=== PATIENT | male | born 1965 | race Caucasian/White ===

== ENCOUNTER 2017-04-02 19:13 | Emergency (ER) | payer SELFPAY ==
[~2017-04-02 19:13] MED LIST: Sodium Chloride 0.9% 1,000 ML BAG ONE; Sodium Chloride 0.9% 100 ML BAG ONE; Sodium Chloride Irrig Solution 250 ML BOT ONE
[2017-04-02] MEDS ORDERED: Fentanyl 100 MCG/2 ML VIAL ONE (19:18)
[2017-04-02] MEDS ORDERED: ceFAZolin Sodium 1 GM VIAL ONE (19:24)
[2017-04-02] MEDS ORDERED: Adacel (T-DAP) 0.5 ML VIAL ONE (19:24)
[2017-04-02 19:32] LABS: #Basophils 0.1 thou/uL (0.0-0.2); #Eosinphils 0.3 thou/uL (0.0-0.7); #Lymphocytes 3.3 thou/uL (1.20-3.40); #Monocytes 0.6 thou/uL (0.11-0.59); #Neutrophils 3.6 thou/uL (1.40-6.50); %Eosinophils 4.1 % (0.0-10.0); %Lymphocytes 41.7 % (21.0-51.0); %Monocytes 7.8 % (0.0-10.0); %Neutrophils 45.5 % (42.0-75.0); Hemoglobin 15.4 g/dL (14.0-18.0); Mean Corpuscular HGB CONC 34.5 g/dL (32.0-36.0); Mean Corpuscular Volume 92.7 fl (80.0-94.0); Mean Platelet Volume 6.7 fL (7.4-10.4); Platelet Count 294 thou/uL (130-400); RBC Distribution Width 11.6 % (11.5-14.5); White Blood Cell (WBC) Count 7.9 thou/uL (4.8-10.8)
[2017-04-02] MEDS ORDERED: Lidocaine 1% w/Epinephrine 1:100K 20 ML VIAL ONE (19:39)
[2017-04-02 19:51] LABS: ALT (SGPT) 41 U/L (8-55); AST (SGOT) 39 U/L (5-34); Albumin 4.3 g/dL (3.5-5.0); Alkaline Phosphatase 97 U/L (40-150); Anion Gap 16 mmol/L (10-20); BUN (Urea Nitrogen) 16 mg/dL (8.4-25.7); Bilirubin, Total Less than 0.3 mg/dL (0.2-1.2); Calc. Creatinine Clearance 0 mL/min (70-130); Calcium 9.1 mg/dL (7.8-10.44); Carbon Dioxide 23 mmol/L (22-29); Chloride 104 mmol/L (98-107); Estimated GFR-MDRD 78; Globulin 2.7 g/dL (2.4-3.5); Glucose 103 mg/dL (70-105); Potassium 3.6 mmol/L (3.5-5.1); Sodium 139 mmol/L (136-145)
[2017-04-02] MEDS ORDERED: Triple Antibiotic Oint 1 GM Packet ONE (20:36)
--- NOTE | 2017-04-02 22:03 | RAD ---
LEFT ELBOW TWO VIEWS: History: 51-year-old male with left elbow laceration. IMPRESSION: No fracture or dislocation or overt metal foreign body or other significant acute process. POS: [facility]
== END 2017-04-02 20:55 | disposition home or self-care (01) ==
LOC: MADERS 19:13
DX: S41.112A Laceration without foreign body of left upper arm, initial encounter (principal); I10 Essential (primary) hypertension; F17.210 Nicotine dependence, cigarettes, uncomplicated; W29.8XXA Contact with other powered hand tools and household machinery, initial encounter
CPT/HCPCS: 12034; 80053; 85025; 90471; 90715; 96365; 96375; J0690; J2001; J3010; J7050

== ENCOUNTER 2017-04-10 16:33 | Emergency (ER) | payer SELFPAY | END 2017-04-10 17:00 | disposition home or self-care (01) | LOC: MADERS 16:33 | DX: H60.91 Unspecified otitis externa, right ear (principal); S51.012D Laceration without foreign body of left elbow, subsequent encounter; I10 Essential (primary) hypertension; I49.9 Cardiac arrhythmia, unspecified; F17.210 Nicotine dependence, cigarettes, uncomplicated; W22.8XXD Striking against or struck by other objects, subsequent encounter | CPT/HCPCS: 99282 ==